=== PATIENT | female | born 1950 | race Caucasian/White ===

== ENCOUNTER 2018-06-22 16:11 | Emergency (ER) | payer MEDICARE, OTHER ==
--- NOTE | 2018-06-22 17:34 | ED ---
Upper Extremity Pain - HPI Summary HPI Summary: Patient is a 68 y/o female brought in by EMS who presents to the ED s/p fall. She tripped on a step on the way into the vets office. Patient was sent left shoulder first into the wall, and also hit her elbow, knee, and face. She now c/ o left shoulder, left knee, and nose pain. Pain is rated a 10/10 in severity, and she now cannot move her arm. She was near-syncopal but denies any LOC. Patient denies any head pain, neck pain, or back pain as per nurses note. She denies the use of blood thinners. Patient notes she is consistently on 750 mg Levaquin QD for a kidney issue. - History of Current Complaint Chief Complaint: EDExtremityUpper Stated Complaint: FALL PER EMS Time Seen by Provider: 06/22/18 16:29 Hx Obtained From: Patient, EMS Mechanism Of Injury: Fall From A Standing Position Onset/Duration: Still Present Timing: Constant Severity Currently: Severe - 10/10 Pain Location: Shoulder - left, Elbow, Other: - left knee Associated Signs & Symptoms: Negative: Back Pain, Neck Pain - Allergies/Home Medications Allergies/Adverse Reactions: Allergies Allergy/AdvReac Type Severity Reaction Status Date / Time amoxicillin Allergy Hives Verified 06/22/18 16:20 azithromycin Allergy Rash Verified 06/22/18 16:20 clindamycin Allergy Rash Verified 06/22/18 16:20 hydromorphone [From Dilaudid] Allergy Hives Verified 06/22/18 16:20 Latex, Natural Rubber Allergy Anaphylatic Verified 06/22/18 16:20 Shock meperidine [From Demerol] Allergy Hives Verified 06/22/18 16:20 morphine Allergy Hives Verified 06/22/18 16:20 Penicillins Allergy Rash Verified 06/22/18 16:20 Sulfa (Sulfonamide Allergy Rash Verified 06/22/18 16:20 Antibiotics) Home Medications: Home Medications ALPRAZolam TAB* [Xanax TAB*] 0.25 mg PO DAILY 06/22/18 [History Confirmed ] Atorvastatin* [Lipitor*] 20 mg PO DAILY 06/22/18 [History Confirmed 06/22/18] Furosemide TAB* [Lasix TAB*] 20 mg PO DAILY 06/22/18 [History Confirmed 06/22/18 ] Levofloxacin TAB* [Levaquin TAB*] 750 mg PO DAILY 06/22/18 [History Confirmed ] Liraglutide (NF) [Victoza (NF)] 0.6 mg SUBCUT DAILY 06/22/18 [History Confirmed 06/22/18] Lisinopril TAB* [Prinivil TAB*] 40 mg PO DAILY 06/22/18 [History Confirmed 06/22] Metoprolol Succinate XL TAB* [Toprol XL TAB*] 50 mg PO DAILY 06/22/18 [History Confirmed 06/22/18] Spironolactone TAB* [Aldactone TAB*] 25 mg PO DAILY 06/22/18 [History Confirmed 06/22/18] PMH/Surg Hx/FS Hx/Imm Hx Endocrine/Hematology History: Reports: Hx Diabetes Cardiovascular History: Reports: Hx Hypertension Neurological History: Reports: Hx CVA Infectious Disease History: No Infectious Disease History: Denies: Traveled Outside the [place] in Last 30 Days - Family History Known Family History: Positive: Other - [place] - mother - Social History Alcohol Use: None Hx Substance Use: No Substance Use Type: Reports: None Hx Tobacco Use: No Smoking Status (MU): Never Smoked Tobacco Review of Systems Positive: Other - nasal pain Positive: Arthralgia - left shoulder, elbow, knee. Negative: Other - head, neck , back pain Positive: Syncope - near, NEGATIVE: LOC All Other Systems Reviewed And Are Negative: Yes Physical Exam - Summary Physical Exam Summary: Constitutional: Well-developed, Well-nourished, Alert. (-) Distressed Skin: Warm, Dry, Abrasion to left elbow HENT: Normocephalic; Atraumatic Eyes: Conjunctiva normal Neck: Musculoskeletal ROM normal neck. (-) JVD, (-) Stridor, (-) Tracheal deviation Cardio: Rhythm regular, rate normal, Heart sounds normal; Intact distal pulses; The pedal pulses are 2+ and symmetric. Radial pulses are 2+ and symmetric. (-) Murmur Pulmonary/Chest wall: Effort normal. (-) Respiratory distress, (-) Wheezes, (-) Rales Abd: Soft, (-) tenderness, (-) Distension, (-) Guarding, (-) Rebound Musculoskeletal: (-) Edema, Right shoulder tenderness but NV intact distally with good pulses, Pain with ROM of right arm, No C-spine tenderness, Left knee tenderness, Good ROM with left knee and NV intact distally, No bony tenderness of left elbow and NV intact distally Lymph: (-) Cervical adenopathy Neuro: Alert, Oriented x3 Psych: Mood and affect Normal Triage Information Reviewed: Yes Vital Signs On Initial Exam: Initial Vitals Temp Pulse Resp BP Pulse Ox 98.3 F 86 16 125/69 96 06/22/18 16:13 06/22/18 16:13 06/22/18 16:13 06/22/18 16:13 06/22/18 16:13 Vital Signs Reviewed: Yes Diagnostics - Vital Signs Vital Signs Temp Pulse Resp BP Pulse Ox 06/22/18 16:13 98.3 F 86 16 125/69 96 - Laboratory Lab Statement: Any lab studies that have been ordered have been reviewed, and results considered in the medical decision making process. - Radiology Shoulder XR Radiology Interpretation Completed By: Radiologist Summary of Radiographic Findings: 1. OSTEOPENIA. 2. FRACTURE THROUGH THE GREATER TUBEROSITY. 3. OSTEOARTHRITIS. ED physician reviewed radiology report. Clavicle XR Radiology Interpretation Completed By: Radiologist Summary of Radiographic Findings: 1. OSTEOPENIA. 2. FRACTURE THROUGH THE GREATER TUBEROSITY. 3. OSTEOARTHRITIS. ED physician reviewed radiology report. Knee XR Radiology Interpretation Completed By: Radiologist Summary of Radiographic Findings: 1. OSTEOPENIA. 2. OSTEOARTHRITIS. 3. PERIPHERAL ARTERIAL DISEASE. 4. JOINT EFFUSION. 5. NO ACUTE OSSEOUS INJURY. IF SYMPTOMS PERSIST, RECOMMEND REPEAT IMAGING. ED physician reviewed radiology report. Course/Dx - Course Course Of Treatment: Patient is a 68 y/o female brought in by EMS who presents to the ED s/p fall. She now c/o left shoulder, left knee, and nose pain. A physical exam revealed Abrasion to left elbow, Right shoulder tenderness but NV intact distally with good pulses, Pain with ROM of right arm, No C-spine tenderness, Left knee tenderness, Good ROM with left knee and NV intact distally , No bony tenderness of left elbow and NV intact distally. A shoulder and clavicle XR revealed OSTEOPENIA. FRACTURE THROUGH THE GREATER TUBEROSITY. OSTEOARTHRITIS. A knee XR revealed OSTEOPENIA. OSTEOARTHRITIS. PERIPHERAL ARTERIAL DISEASE. JOINT EFFUSION. NO ACUTE OSSEOUS INJURY. In the course patient was given Tylenol/Codeine, and Flexeril. As per Dr. Erwin, patient should be given a shoulder immobilizer and follow up outpatient. Final dx is proximal humerus fracture. Patient is discharged and is agreeable with this plan. - Diagnoses Provider Diagnoses: Proximal humerus fracture - Physician Notifications Discussed Care of Patient With: Markus Erwin Time Discussed With Above Provider: 18:30 Instructed by Provider To: Other - Agrees with shoulder immobilizer vs. sling. Discharge pt and have her follow up outpatient. Discharge - Sign-Out/Discharge Documenting (check all that apply): Patient Departure - Discharge Patient Received Moderate/Deep Sedation with Procedure: No - Discharge Plan Condition: Improved Disposition: HOME Prescriptions: Acetaminop/Codeine 30 MG TAB* [Tylenol/Codeine 30 MG TAB*] 2 tab PO Q6H PRN #15 tab MDD 8 PRN Reason: Pain Cyclobenzaprine TAB* [Flexeril 10 MG TAB*] 10 mg PO TID #20 tab Patient Education Materials: Proximal Humerus Fracture (ED) Print Language: MOHAWK Referrals: Markus Erwin MD [Medical Doctor] - Merrick Yañez II, DO [Primary Care Provider] - - Billing Disposition and Condition Condition: IMPROVED Disposition: Home - Attestation Statements Document Initiated by Scribe: Yes Documenting Scribe: Briseida Silva Provider For Whom Scribe is Documenting (Include Credential): Kristina Gagnon MD Scribe Attestation: Briseida Navarro, scribed for Kirstina Love MD on 06/22/18 at 2245. Scribe Documentation Reviewed: Yes Provider Attestation: The documentation as recorded by the Briseida gonzales accurately reflects the service I personally performed and the decisions made by me, Kristina Gagnon MD Status of Scribe Document: Viewed
[2018-06-22] MEDS ORDERED: Acetaminop/Codeine 30 MG TAB* 1 TAB (300 MG/30 MG) PO PRN (17:36)
[2018-06-22] MEDS ORDERED: Acetaminop/Codeine 30 MG TAB* 1 TAB (300 MG/30 MG) ONE (18:19)
[2018-06-22] MEDS ORDERED: Cyclobenzaprine TAB* 10 MG PO ONE (19:14)
[2018-06-22 19:28] VITALS: BP 115/67
== END 2018-06-22 19:26 | disposition home or self-care (01) ==
LOC: ED 16:11
DX: S42.202A Unspecified fracture of upper end of left humerus, initial encounter for closed fracture (principal); W18.30XA Fall on same level, unspecified, initial encounter; Y92.9 Unspecified place or not applicable; E11.9 Type 2 diabetes mellitus without complications; I10 Essential (primary) hypertension; Z86.73 Personal history of transient ischemic attack (TIA), and cerebral infarction without residual deficits
CPT/HCPCS: 99281; A9270-GY